=== PATIENT | female | born 1980 | race Two or more races ===

== ENCOUNTER 2024-04-07 13:42 | Emergency (ER) | payer OTHER ==
[~2024-04-07] VITALS: Ht 152.4 cm; Wt 70.3 kg
== END 2024-04-07 15:42 | disposition home or self-care (01) ==
LOC: ER 13:43
DX: L50.9 Urticaria, unspecified (principal); R21 Rash and other nonspecific skin eruption; Z88.1 Allergy status to other antibiotic agents